=== PATIENT | male | born 1990 | race Caucasian/White ===

== ENCOUNTER 2017-10-24 21:40 | Emergency (ER) | payer SELFPAY ==
[~2017-10-24] VITALS: Ht 188 cm; Wt 138.4 kg
[~2017-10-24 21:40] MED LIST: ZOFR4TAB3 PO
[2017-10-24 21:47] VITALS: BP 143/80; PULSE 106; RESP 20; TEMP 98.9; O2SAT 96
--- NOTE | 2017-10-24 23:22 | PD ---
HPI Chief Complaint: Cold / Flu Symptoms Time Seen by Provider: 22:34 Travel History International Travel<30 days: No Contact w/Intl Traveler<30days: No Traveled to known affect area: No History of Present Illness HPI Patient started this morning with a sore throat congestion that progressed slowly to abdominal pain and nausea. And then he developed complete body weakness and aches and chills. Continues in the ER he has taken nothing for the symptoms he has not seen another doctor for the symptoms. It is been 24 hours of upper respiratory viral-like syndrome PFSH Past Medical History Diminished Hearing: No ?: Not Past Surgical History Other Surgery: Yes (Repair fx patella, ankle sx) Social History Alcohol Use: Yes (SOCIALLY) Tobacco Use: Yes (1 PPD) Substance Use: No Allergies-Medications (Allergen,Severity, Reaction): Coded Allergies: shellfish derived (Unverified Allergy, Severe, Anaphylaxis, 05/15/17) Reported Meds & Prescriptions Reported Meds & Active Scripts Active Guaifenesin AC Liq (Guaifenesin-Codeine Liq) 100-10 Mg/5 Ml Syrp 10 Ml PO Q6H PRN Diphenhydramine (Diphenhydramine HCl) 25 Mg Cap 25 Mg PO Q6H PRN Pseudoephedrine (Pseudoephedrine HCl) 60 Mg Tab 60 Mg PO Q6H PRN Ibuprofen 600 Mg Tab 600 Mg PO Q6H PRN Tamiflu (Oseltamivir Phosphate) 75 Mg Cap 75 Mg PO BID Zofran ODT (Ondansetron HCl) 4 Mg Tab 4 Mg PO EVERY 6 HOURS Review of Systems Except as stated in HPI: all other systems reviewed are Neg General / Constitutional: Positive: Fever, Chills HENT: Positive: Headaches, Sore Throat, Congestion Gastrointestinal: Positive: Nausea Musculoskeletal: Positive: Myalgias, Weakness Physical Exam Narrative GENERAL: Patient mildly uncomfortable appearance but nontoxic nonseptic awake alert SKIN: Warm and dry. HEAD: Atraumatic. Normocephalic. EYES: Pupils equal and round. No scleral icterus. No injection or drainage. ENT: No nasal bleeding or discharge. Mucous membranes pink and moist. Her pharynx is erythematous with tonsils enlarged no exudate NECK: Trachea midline. No JVD. Submandibular nodes lymphadenopathy positive CARDIOVASCULAR: Regular rate and rhythm. RESPIRATORY: No accessory muscle use. Clear to auscultation. Breath sounds equal bilaterally. GASTROINTESTINAL: Abdomen soft, non-tender, nondistended. Hepatic and splenic margins not palpable. MUSCULOSKELETAL: Extremities without clubbing, cyanosis, or edema. No obvious deformities. NEUROLOGICAL: Awake and alert. No obvious cranial nerve deficits. Motor grossly within normal limits. Five out of 5 muscle strength in the arms and legs. Normal speech. PSYCHIATRIC: Appropriate mood and affect; insight and judgment normal. Data Data Last Documented VS Vital Signs Date Time Temp Pulse Resp B/P (MAP) Pulse Ox O2 Delivery O2 Flow Rate FiO2 10/25/17 00:01 90 18 136/80 (98) 99 10/24/17 21:47 98.9 Orders Orders Group A Rapid Strep Screen (10/24/17 22:34) Influenzae A/B Antigen (10/24/17 22:34) Strep Culture (Group A) (10/24/17 22:42) Oseltamivir (Tamiflu) (10/24/17 23:30) Ibuprofen (Motrin) (10/24/17 23:30) Pseudoephedrine (Sudafed) (10/24/17 23:30) Guaifenesin Liq (Robitussin Liq) (10/24/17 23:30) Ed Discharge Order (10/24/17 23:42) MDM Medical Decision Making Medical Screen Exam Complete: Yes Emergency Medical Condition: Yes Differential Diagnosis Viral illness versus influenza versus strep pharyngitis versus other Narrative Course Patient's flu swab is positive for flu a patient is given Tamiflu and symptomatically treatment as well with ibuprofen Sudafed and guaifenesin prescribed same for discharge follow-up as an outpatient Diagnosis Primary Impression: Influenza A Scripts Guaifenesin-Codeine Liq (Guaifenesin AC Liq) 100-10 Mg/5 Ml Syrp 10 ML PO Q6H Y for COUGH, #1 BOTTLE 0 Refills Prov: Hernandez Quintana MD 10/24/17 Diphenhydramine (Diphenhydramine) 25 Mg Cap 25 MG PO Q6H Y for ALLERGIES, #12 CAP 0 Refills Prov: Hernandez Quintana MD 10/24/17 Pseudoephedrine (Pseudoephedrine) 60 Mg Tab 60 MG PO Q6H Y for NASAL CONGESTION, #20 TAB 0 Refills Prov: Hernandez Quintana MD 10/24/17 Ibuprofen (Ibuprofen) 600 Mg Tab 600 MG PO Q6H Y for Pain/Inflammation, #20 TAB 0 Refills Prov: Hernandez Quintana MD 10/24/17 Oseltamivir (Tamiflu) 75 Mg Cap 75 MG PO BID for Mgmt Viral Infection, #10 CAP 0 Refills Prov: Hernandez Quintana MD 10/24/17 Disposition: 01 DISCHARGE HOME Condition: Good Hernandez Quintana MD Oct 24, 2017 23:22
[2017-10-24] MEDS ORDERED: OSELTAMIVIR PHOSPHATE 75 MG CAP PO ONE (23:30)
[2017-10-24] MEDS ORDERED: IBUPROFEN 600 MG TAB PO ONE (23:30)
[2017-10-24] MEDS ORDERED: guaiFENesin SOLUTION 200 MG/10 ML CUP PO ONE (23:30)
[2017-10-24] MEDS ORDERED: PSEUDOEPHEDRINE HCL 30 MG TAB PO ONE (23:30)
[2017-10-24] MEDS ORDERED: IBUP-232 PO (23:33)
[2017-10-24] MEDS ORDERED: OSEL75 PO (23:33)
[2017-10-24] MEDS ORDERED: DIPH25CA PO (23:34)
[2017-10-24] MEDS ORDERED: SUDO60TA2 PO (23:34)
[2017-10-24] MEDS ORDERED: GUAISYP4 PO (23:34)
[2017-10-25 00:01] VITALS: BP 136/80
== END 2017-10-25 00:02 | disposition home or self-care (01) ==
LOC: PHED 21:40 → PHEFT 10-25 00:02
DX: J09.X2 Influenza due to identified novel influenza A virus with other respiratory manifestations (principal); F17.200 Nicotine dependence, unspecified, uncomplicated; Z91.013 Allergy to seafood
CPT/HCPCS: 87081; 87804; 87880; 99284